=== PATIENT | female | born 1985 | race African-American/Black ===

== ENCOUNTER 2020-11-23 00:05 | Emergency (ER) | payer MEDICAID ==
[~2020-11-23] VITALS: Ht 172.7 cm; Wt 57.0 kg
[~2020-11-23 00:05] MED LIST: BENZ1TAB7 PO; HAL5 PO; KEPP500 PO; LORA-250 PO; OLAN5TAB74 PO; THIA100T72 PO
[2020-11-23] MEDS ORDERED: LEVETIRACETAM 1000MG PREMIX 100 ML IV ONE (00:45)
[2020-11-23] MEDS ORDERED: LORAZEPAM 2MG/ML CPJ IV ONE (01:00)
[2020-11-23 01:19] LABS: HEMATOCRIT. 40.8 % (36.0-48.0); MEAN CORPUSCULAR HEMOGLOBIN 27.3 pg (28.0-32.0); MEAN CORPUSCULAR VOLUME 85.9 fL (81.0-99.0); MEAN PLATELET VOLUME 9.3 fl (7.4-10.4); PLATELET 354 x1000/uL (130-400); RED BLOOD CELL COUNT 4.75 mill/uL (4.2-5.4); RED CELL DISTRIBUTION WIDTH 15.5 % (11.6-14.6)
[2020-11-23 01:33] LABS: CHLORIDE 105 mEq/L (98-107)
[2020-11-23 01:39] LABS: ETHANOL BLOOD < 10 mg/dL
[2020-11-23 01:53] LABS: CLARITY URINE CLEAR (CLEAR); COLOR URINE YELLOW (YELLOW); KETONES URINE TRACE (NEGATIVE); LEUKOCYTE ESTERASE URINE NEGATIVE (NEGATIVE); NITRITE URINE NEGATIVE (NEGATIVE); OCCULT BLOOD URINE 3+ (NEGATIVE); PROTEIN URINE 2+ (NEGATIVE); UROBILINOGEN URINE 0.2 E.U./dL (0.2-1.0)
[2020-11-23 02:01] LABS: *BARBITURATES SCREEN URINE NEGATIVE (NEGATIVE)
[2020-11-23 02:02] LABS: *BENZODIAZEPINES SCREEN URINE NEGATIVE (NEGATIVE); *COCAINE SCREEN URINE NEGATIVE (NEGATIVE); METHADONE URINE SCREEN NEGATIVE (NEGATIVE); OPIATES URINE SCREEN NEGATIVE (NEGATIVE); PHENCYCLIDINE URINE SCREEN NEGATIVE (NEGATIVE)
[2020-11-23 02:05] LABS: *AMPHETAMINES SCREEN URINE PRESUMTIVE POSITIVE (NEGATIVE); CANNABINOID URINE SCREEN PRESUMTIVE POSITIVE (NEGATIVE)
[2020-11-23 02:28] LABS: PLATELET ESTIMATE NORMAL
[2020-11-23 08:56] VITALS: BP 127/65
== END 2020-11-23 08:57 | disposition home or self-care (01) ==
LOC: ER 00:05 → EDBD 00:05 → EDUNIT# 00:05 → ER 08:57
DX: G40.909 Epilepsy, unspecified, not intractable, without status epilepticus (principal); T43.625A Adverse effect of amphetamines, initial encounter; Y92.9 Unspecified place or not applicable
CPT/HCPCS: 36415; 70450; 80053; 80305; 80320; 81003; 82962; 85025; 96374; 96375; 99285; J1953; J2060; G0480